=== PATIENT | female | born 1985 | race Caucasian/White ===

== ENCOUNTER 2016-10-03 20:43 | Observation (INO) ==
[2016-10-03 22:49] LABS: Basophils # 0.1 K/mcL (0.0-0.2); Basophils % 0.4 %; Eosinophils # 0.1 K/mcL (0.0-0.6); Eosinophils % 0.7 %; Hematocrit 37.8 % (35.3-44.9); Hemoglobin 12.5 g/dL (11.5-15.4); Immature Granulocytes % 0.2 % (0-4); Lymphocytes # 4.3 K/mcL (0.6-4.6); Lymphocytes % 26.2 %; Mean Corpuscular HGB Conc 33.1 g/dL (31.6-35.5); Mean Corpuscular Hemoglobin 29.1 pg (28.0-33.3); Mean Corpuscular Volume 88.1 fL (83.0-100.0); Mean Platelet Volume 8.1 fL (9.4-12.4); Platelet Count 312 K/mcL (140-400); Red Blood Count 4.29 M/mcL (3.82-4.97); Red Cell Distribution Width 12.5 % (11.5-14.5); Segmented Neutrophils % 66.5 %
[2016-10-03 23:05] LABS: Alanine Aminotransferase 12 Units/L (0-55); Albumin 3.3 g/dL (3.5-5.0); Albumin/Globulin Ratio 0.8 (1.1-2.2); Alkaline Phosphatase 86 Units/L (38-126); Aspartate Amino Transferase 15 Units/L (5-34); BUN/Creatinine Ratio 12 (6-26); Bilirubin,Direct 0.1 mg/dL (0.0-0.5); Bilirubin,Indirect 0.2 mg/dL (0.0-1.2); Bilirubin,Total 0.3 mg/dL (0.2-1.2); Blood Urea Nitrogen 10 mg/dL (7-20); Calcium 9.1 mg/dL (8.6-10.8); Carbon Dioxide 26 mEq/L (19-29); Chloride 105 mEq/L (98-109); Globulin 4.3 g/dL (2.4-3.5); Glucose 89 mg/dL (70-99); Lipase 292 Units/L (8-78); Osmolality,Calculated 283 (280-300); Potassium 3.5 mEq/L (3.5-4.5); Sodium 137 mEq/L (136-145); Total Protein 7.6 g/dL (6.0-8.3); eGFR For African Americans > 60 (> 60); eGFR For Non-African Americans > 60 (> 60)
[2016-10-04] MEDS ORDERED: 0.9 % Sodium Chloride 1,000 ML IVC ONE (01:21)
[2016-10-04] MEDS ORDERED: *HR* Morphine 2 MG/ML SYRINGE IVP ONE ×2 (01:21→04:40)
[2016-10-04] MEDS ORDERED: Ondansetron 4 MG/2 ML VIAL IVP ONE (01:21)
--- NOTE | 2016-10-04 01:25 | Emergency Department Note ---
Disposition Clinical Impression: Abdominal pain Qualifiers: Abdominal location: unspecified location Qualified Code(s): R10.9 - Unspecified abdominal pain Nausea and vomiting Qualifiers: Vomiting type: unspecified Vomiting Intractability: unspecified Qualified Code( s): R11.2 - Nausea with vomiting, unspecified Pancreatitis Qualifiers: Chronicity: acute Pancreatitis type: unspecified pancreatitis type Acute pancreatitis complication: unspecified Qualified Code(s): K85.90 - Acute pancreatitis without necrosis or infection, unspecified Disposition: Admitted As Inpatient Condition: Fair Referrals: Sergio Ervin DO [Primary Care Provider] - Forms: Work/School Release, ED Satisfaction Letter Time of Disposition: 03:52 Abdominal Pain HPI - General Chief Complaint: ED Abdominal Pain Stated Complaint: lower rt side abdominal pain Time Seen by Provider: 10/04/16 01:16 Source: patient Mode of arrival: ambulatory Limitations: no limitations Nursing Notes Reviewed: Yes Vital Signs Reviewed: Yes - History of Present Illness HPI Narrative: 31-year-old female with history of anxiety and depression presents for evaluation of right lower quadrant pain. Patient notes symptoms initially started around 1730 last night. Noticed to be periumbilical at that time. Since then the patient notes primarily sharp pain in her right lower quadrant but states it she does have pain in her left lower abdomen as well. Denies history of appendicitis. Reports nausea and vomiting since the onset of pain. Reports the pain is worse with walking and ambulation. States she has not taken any medicine prior to arrival. Notes that she has been nothing by mouth for approximately 3 hours prior to examination. Denies any fevers. Denies any chest pain or shortness of breath. Denies any dysuria or hematuria. States that she was seen at urgent care earlier today and had a negative urine test obtained at that time. Denies possibly being . No vaginal bleeding or discharge. Pain Scale: 10 - Related Data Home Medications Medication Instructions Recorded Confirmed Buspirone HCl [Buspar] 10 mg PO DAILY 12/19/15 06/16/16 TraZODone [TraZODone] 100 mg PO DAILY 12/19/15 06/16/16 Venlafaxine XR (24 HR) [Effexor Xr] 225 mg PO DAILY 12/19/15 06/16/16 ARIPiprazole [Abilify] 10 mg PO DAILY 06/16/16 06/16/16 Naproxen [Naprosyn] 250 mg PO DAILY 06/16/16 06/16/16 Norgestimate-Ethinyl Estradiol 1 each PO DAILY 06/16/16 06/16/16 [Sprintec 28 Day Tablet] Previous Rx's Medication Instructions Recorded Ibuprofen [Motrin] 800 mg PO Q8HR #30 tablet 12/19/15 Acetaminophen [Tylenol] 650 mg PO Q6HR PRN #20 tablet 02/25/16 amLODIPine [Norvasc] 2.5 mg PO DAILY #14 tablet 02/25/16 Sulfamethoxazole/Trimeth DS 1 each PO BID #20 tablet 06/16/16 [Bactrim DS] Allergies Allergy/AdvReac Type Severity Reaction Status Date / Time flu vaccine Allergy can't take Uncoded 10/03/16 21:23 All systems ED: reviewed and negative except as stated. Constitutional: Reports: as per HPI. Denies: fever Eyes: Reports: as per HPI ENT ED: Reports: as per HPI Cardiovascular: Reports: as per HPI. Denies: chest pain Respiratory: Reports: as per HPI. Denies: dyspnea Gastrointestinal: Reports: as per HPI, abdominal pain, nausea, vomiting. Denies : diarrhea, constipation Genitourinary: Reports: as per HPI. Denies: urgency, dysuria Musculoskeletal: Reports: as per HPI Integumentary: Reports: as per HPI Neurological: Reports: as per HPI Psychiatric: Reports: as per HPI Endocrine: Reports: as per HPI Hematological/Lymphatic: Reports: as per HPI Allergic/Immunologic: Reports: as per HPI Abdominal Pain PMH - Past Medical History Medical history: Reports: hypertension Female Surgical History: Reports: orthopedic, other [employer] history: Reports: non-contributory Psychiatric history: Reports: anxiety, depression, other - Social History Smoking status: Never smoker Alcohol use: Reports: none Drug use: Reports: none Physical Exam - General Limitations: no limitations General appearance: alert - Head Head exam: atraumatic, normocephalic, normal inspection - Eye Eye exam: Present: normal appearance, EOMI - ENT ENT exam: normal exam, mucous membranes moist - Neck Neck exam: Present: normal inspection, trachea midline - Chest Chest inspection: Present: normal inspection, symmetric chest wall rise - Respiratory Respiratory exam: Present: normal lung sounds bilaterally. Absent: respiratory distress - Cardiovascular Cardiovascular exam: Present: regular rate, normal rhythm - Abdominal Exam Abdominal exam: Present: soft, tenderness (Moderate tenderness with deep palpation in the right lower quadrant.), guarding (Involuntary), normal bowel sounds - Extremities Exam Extremities exam: Present: normal inspection. Absent: pedal edema - Back Exam Back exam: Present: normal inspection. Absent: CVA tenderness (R), CVA tenderness (L) - Neurological Exam Neurological exam: Present: alert, oriented X3, CN II-XII intact - Psychiatric Psychiatric exam: Present: normal affect, normal mood - Skin Skin exam: Present: warm, dry, intact, normal color Course Course Narrative: Patient seen and examined upon arrival to the treatment area. Patient does have a concerning history for an appendicitis. Patient had lab work obtained from triage. Does have leukocytosis. Reports that she had a negative urine test earlier at urgent care. Patient will get a CT pelvis with contrast. Symptomatically with IV fluids and antiemetics and pain control. Disposition pending. - Reevaluation(s) Reevaluation #1: Patient seen and examined. Patient's abdominal exam is unremarkable. Patient' s CT shows diverticulosis without evidence of appendicitis. Awaiting urinalysis. Time: 02:48 Reevaluation #2: Patient seen and examined. States that her pain has not completely resolved. Discuss plan of care. Time: 03:46 Reevaluation #3: Patient seen and reexamined. Patient states that her pain has not improved. Patient was offered admission to the hospital. Time: 04:26 Additional Reevaluation(s): 0438: Bedside ultrasound was done of the visualized gallbladder. Patient is tearful on exam. Patient is tearful on exam, and not comfortable going home and the likelihood of returning is high. 0457: Spoke with hospitalist regarding plan of care. Hospitalists recommended we place the order for the gallbladder ultrasound. Vital Signs Temperature 98.2 F 10/03/16 21:17 Pulse Rate 89 10/03/16 21:17 Respiratory Rate 16 10/03/16 21:17 Blood Pressure 157/102 10/03/16 21:17 O2 Sat by Pulse Oximetry 97 10/03/16 21:17 Temperature 98.2 F 10/03/16 21:17 Pulse Rate 78 10/04/16 03:00 Respiratory Rate 15 10/04/16 03:00 Blood Pressure 154/99 10/04/16 03:00 O2 Sat by Pulse Oximetry 97 10/03/16 21:17 Oxygen Delivery Oxygen Delivery Room Air Abdominal Pain - MDM Narrative Medical decision making narrative: 31-year-old female pins for evaluation of abdominal pain. Patient extensive workup including labs, lipase, CT abdomen and pelvis. CT shows diverticulosis without evidence of diverticulitis. Patient had a mild elevation in her lipase. Patient also had a mild leukocytosis likely related to vomiting. Patient's CT scan did not show any evidence of acute pancreatitis. Patient did not appear to be any acute distress. Patient likely to be managed as an outpatient. Patient will be treated for pancreatitis as an outpatient. States she does not drink alcohol. Recommended a clear liquid diet today. Follow-up with her primary doctor the next 2-3 days. Zofran for nausea as well as Levsin for pain. Patient will likely need outpatient ultrasound of the gallbladder. Patient is agreeable to this plan of care. Return precautions were discussed and verbalized. Symptoms are worse with fevers or nausea vomiting she should return to emergency department for further evaluation. On reevaluation. The patient is extremely tearful on exam. The patient does not feel comfortable going home. Patient does have a mildly elevated lipase with no changes acute changes on CT abd pelvis. Attempted to trial outpatient management of her pancreatitis however the patient states that she "has never felt this pain before" and doesn't feel comfortable going home. Bedside ultrasound in the emergency department was unable to visualize the gallbladder. Patient be admitted to the hospitalist service for further evaluation monitoring. Appropriate pain control and likely ultrasound of GB. - Lab Data Lab results reviewed: Yes I reviewed the patient's lab results. Result diagrams: 10/03/16 22:32 10/03/16 22:32 Lab Results 10/03/16 10/03/16 10/04/16 Range/Units 22:32 22:32 02:33 WBC 16.6 H (4.3-11.1) K/mcL RBC 4.29 (3.82-4.97) M/mcL Hgb 12.5 (11.5-15.4) g/dL Hct 37.8 (35.3-44.9) % MCV 88.1 (83.0-100.0) fL MCH 29.1 (28.0-33.3) pg MCHC 33.1 (31.6-35.5) g/dL RDW 12.5 (11.5-14.5) % Plt Count 312 (140-400) K/mcL MPV 8.1 L (9.4-12.4) fL Immature Gran % 0.2 (0-4) % Seg Neutrophils % 66.5 % Lymphocytes % 26.2 % Monocytes % 6.0 % Eosinophils % 0.7 % Basophils % 0.4 % Neutrophils # 11.0 H (1.6-8.9) K/mcL Lymphocytes # 4.3 (0.6-4.6) K/mcL Monocytes # 1.0 (0.0-1.3) K/mcL Eosinophils # 0.1 (0.0-0.6) K/mcL Basophils # 0.1 (0.0-0.2) K/mcL Sodium 137 (136-145) mEq/L Potassium 3.5 (3.5-4.5) mEq/L Chloride 105 (98-109) mEq/L Carbon Dioxide 26 (19-29) mEq/L BUN 10 (7-20) mg/dL Creatinine 0.86 (0.57-1.11) mg/dL Est GFR ( Amer) > 60 (> 60) Est GFR (Non-Af Amer) > 60 (> 60) BUN/Creatinine Ratio 12 (6-26) Glucose 89 (70-99) mg/dL Calculated Osmolality 283 (280-300) Calcium 9.1 (8.6-10.8) mg/dL Total Bilirubin 0.3 (0.2-1.2) mg/dL Direct Bilirubin 0.1 (0.0-0.5) mg/dL Indirect Bilirubin 0.2 (0.0-1.2) mg/dL AST 15 (5-34) Units/L ALT 12 (0-55) Units/L Alkaline Phosphatase 86 (38-126) Units/L Serum Total Protein 7.6 (6.0-8.3) g/dL Albumin 3.3 L (3.5-5.0) g/dL Globulin 4.3 H (2.4-3.5) g/dL Albumin/Globulin Ratio 0.8 L (1.1-2.2) Lipase 292 H (8-78) Units/L Urine Color (Yellow) Urine Clarity (Clear) Urine pH (5.0-8.0) pH Units Ur Specific Crosby (1.010-1.025) Urine Protein (Neg-Trace) mg/dL Urine Glucose (UA) (Normal) mg/dL Urine Ketones (Negative) mg/dL Urine Blood (Negative) Urine Nitrite (Negative) Urine Bilirubin (Negative) Urine Urobilinogen (Normal) mg/dL Ur Leukocyte Esterase (Negative) Urine Microscopic RBC (0-3) per hpf Urine Microscopic WBC (0-3) per hpf Ur Squamous Epith Cells (None-Few) per lpf Urine Bacteria (None-Few) per hpf Hyaline Casts (None-Few) per lpf Ur Culture Indicated? (NO) Urine Test Negative (Negative) 10/04/16 Range/Units 02:33 WBC (4.3-11.1) K/mcL RBC (3.82-4.97) M/mcL Hgb (11.5-15.4) g/dL Hct (35.3-44.9) % MCV (83.0-100.0) fL MCH (28.0-33.3) pg MCHC (31.6-35.5) g/dL RDW (11.5-14.5) % Plt Count (140-400) K/mcL MPV (9.4-12.4) fL Immature Gran % (0-4) % Seg Neutrophils % % Lymphocytes % % Monocytes % % Eosinophils % % Basophils % % Neutrophils # (1.6-8.9) K/mcL Lymphocytes # (0.6-4.6) K/mcL Monocytes # (0.0-1.3) K/mcL Eosinophils # (0.0-0.6) K/mcL Basophils # (0.0-0.2) K/mcL Sodium (136-145) mEq/L Potassium (3.5-4.5) mEq/L Chloride (98-109) mEq/L Carbon Dioxide (19-29) mEq/L BUN (7-20) mg/dL Creatinine (0.57-1.11) mg/dL Est GFR ( Amer) (> 60) Est GFR (Non-Af Amer) (> 60) BUN/Creatinine Ratio (6-26) Glucose (70-99) mg/dL Calculated Osmolality (280-300) Calcium (8.6-10.8) mg/dL Total Bilirubin (0.2-1.2) mg/dL Direct Bilirubin (0.0-0.5) mg/dL Indirect Bilirubin (0.0-1.2) mg/dL AST (5-34) Units/L ALT (0-55) Units/L Alkaline Phosphatase (38-126) Units/L Serum Total Protein (6.0-8.3) g/dL Albumin (3.5-5.0) g/dL Globulin (2.4-3.5) g/dL Albumin/Globulin Ratio (1.1-2.2) Lipase (8-78) Units/L Urine Color Yellow (Yellow) Urine Clarity Clear (Clear) Urine pH 6.0 (5.0-8.0) pH Units Ur Specific Crosby 1.018 (1.010-1.025) Urine Protein Negative (Neg-Trace) mg/dL Urine Glucose (UA) Normal (Normal) mg/dL Urine Ketones Negative (Negative) mg/dL Urine Blood Small H (Negative) Urine Nitrite Negative (Negative) Urine Bilirubin Negative (Negative) Urine Urobilinogen Normal (Normal) mg/dL Ur Leukocyte Esterase Negative (Negative) Urine Microscopic RBC 3-5 H (0-3) per hpf Urine Microscopic WBC 0-3 (0-3) per hpf Ur Squamous Epith Cells Few (None-Few) per lpf Urine Bacteria None Seen (None-Few) per hpf Hyaline Casts None Seen (None-Few) per lpf Ur Culture Indicated? NO (NO) Urine Test (Negative) - Radiology Data Radiology results reviewed: Yes I reviewed the patient's radiology results. Abdomen/Pelvis CT 10/04/16 01:22 IMPRESSION: Diverticulosis. D/ / Adriano Saravia MD / Adrinao Saravia MD Interpreting Provider: Adriano Saravia MD [facility] - [facility].B.A.[facility]. Situation: Demographics Background: Presenting Complaint Assessment: Vital Signs, Course and respsone to treatment, Exam Concerns, Patient/Family Expectation, Pertinant Lab Results Recommendation: Barrier(s) to disposition, Recommendation based on pending studies, treatments, or consults S.B.A.R. Report Given to: Dr. Beltran Antonio Repor Time: 04:53 Attestation Statement - Attestation Attestation: I, Girish Devries MD, personally evaluated this patient and discussed their management with the resident physician. I reviewed the resident's note and agree with the documented findings, medical decision making, and plan of care. 31-year-old female presents to the emergency department with a complaint of some abdominal pain which started about 5:30 this evening. Pain was initially in the periumbilical area and then moved to the entire lower abdomen. Now seems to be worse in the right lower quadrant. There has been some nausea and vomiting associated with the pain. No fever. No diarrhea. No urinary symptoms. On examination patient is a well-developed obese female in no acute distress. She is alert and oriented 3. There is no cyanosis or diaphoresis. Breath sounds are clear and equal bilaterally. Heart regular rate and rhythm. Abdomen is soft with normal bowel sounds. There is mild diffuse lower abdominal tenderness which is slightly worse in the right lower quadrant. No guarding or rebound tenderness. No CVA tenderness. Labs reviewed. CT of the abdomen and pelvis showed some diverticulosis with no acute abnormality. Patient continued to complain of pain and nausea and did not feel comfortable going home. The hospitalist, Dr. Gong, was consulted and accepted admission of the patient.
[2016-10-04 03:05] LABS: Bilirubin,Urine Negative (Negative); Blood,Urine Small (Negative); Clarity,Urine Clear (Clear); Color,Urine Yellow (Yellow); Glucose,Urine (UA) Normal (Normal); Ketones,Urine Negative (Negative); Leukocyte Esterase,Urine Negative (Negative); Nitrite,Urine Negative (Negative); Protein,Urine Negative (Neg-Trace); Specific Gravity,Urine 1.018 (1.010-1.025); Urobilinogen,Urine Normal (Normal)
[2016-10-04 03:08] LABS: Bacteria,Urine None Seen per hpf (None-Few); Hyaline Casts,Urine None Seen per lpf (None-Few); Squamous Epithelial Cell,Urine Few per lpf (None-Few); WBC,Urine 0-3 per hpf (0-3)
[2016-10-04] MEDS ORDERED: Ketorolac 15 MG/ML VIAL IVP ONE (04:10)
[2016-10-04] MEDS ORDERED: Naloxone 0.4 MG/ML INJ IVP PRN (09:07)
[2016-10-04] MEDS ORDERED: Acetaminophen 325 MG TABLET PO PRN (09:07)
--- NOTE | 2016-10-04 09:19 | Internal Med History&Physical ---
Date of Encounter: 10/04/16 Time of Encounter: 08:00 Assessment and Plan (1) DVT prophylaxis Current visit: Yes Status: Acute Lovenox subcutaneously (2) Abdominal pain Current visit: Yes Status: Acute Patient has abdominal pain, with nausea and vomiting. Elevated WBC. Elevated lipase. Patient has a mild tachycardia. - CT abdomen shows normal appendix and pancreas - Abd ultrasound shows no gallstones. - Elevated lipase suggestive of acute pancreatitis. However, patient has lower abdominal pain with the right side more than left side, early appendicitis or gastroenteritis cannot completely excluded. - Patient has elevated WBC and a tachycardia, meet criteria of SIRS, will empirically place patient on Cipro and Flagyl. - Continue nothing by mouth, IV fluid, and pain medication. Closely monitor patient. - Follow up lipase level in a.m. Qualifiers: Abdominal location: right lower quadrant Qualified Code(s): R10.31 - Right lower quadrant pain Internal Medicine - H&P: HPI Chief complaint: Abdominal pain Admitted From: Home Plans for Post Hospital Care: Home History of present illness: Ms. Jason is a 31 year old female patient is a 31-year-old female admitted for abdominal pain. Patient said that the pain started at about the 2 PM yesterday , resolved by itself but to restart at 5:30 PM. Pain is constant, sharp, pressure-like, 10 out of 10. Pain is located on lower abdominal, bilaterally, but right side more than left side. Patient denies fever, but did feel cold. Patient has nausea and vomited twice, the vomiting is greenish fluid, no blood. Patient denies diarrhea or urinary symptoms. Patient has no problem with bowel movement or passing gas. Past Med Surg Social Fam HX - Past Medical History Medical history: hypertension Psychiatric history: anxiety, depression, other - Past Surgical History Surgical History: non-contributory - Social History Smoking Status: Never smoker Smokeless Tobacco Status: No Alcohol use: none Drug use: none - Family History Mother Living Status: Age at : 52 Cause of : Bowel obstruction Father Living Status: Unknown Internal Medicine - H&P: Meds Acetaminophen [Tylenol] 650 mg PO Q6HR PRN #20 tablet 02/25/16 [Rx] amLODIPine [Norvasc] 2.5 mg PO DAILY #14 tablet 02/25/16 [Rx] ARIPiprazole [Abilify] 30 mg PO DAILY 06/16/16 [History] Naproxen [Naprosyn] 250 mg PO DAILY PRN 06/16/16 [History] Norgestimate-Ethinyl Estradiol [Sprintec 28 Day Tablet] 1 each PO DAILY [History] Buspirone HCl [Buspar] 15 mg PO BID 10/04/16 [History] DULoxetine [Cymbalta] 90 mg PO DAILY 10/04/16 [History] Doxepin HCl 100 mg PO HS 10/04/16 [History] LORazepam [Ativan] 0.5 mg PO BID PRN 10/04/16 [History] Allergies flu vaccine Allergy (Uncoded 10/03/16 21:23) can't take All Systems PM: A 10-system review of systems was performed and is negative for pertinent findings except as documented above in the HPI. - Constitutional Vitals: Temp Pulse Resp BP Pulse Ox 97.7 F 92 13 107/68 96 10/04/16 07:14 10/04/16 07:14 10/04/16 07:14 10/04/16 07:14 10/04/16 07:40 General appearance: Present: A&O X 3, no acute distress, answers questions appropriately - Head Head exam: Present: atraumatic, normocephalic - Eye Eye exam: Present: PERRL, conjuntiva pink, sclera anicteric Pupils: Present: PERRL - Neck Neck exam general surgery: Present: supple, trachea midline. Absent: lymphadenopathy - Respiratory Respiratory exam: Present: CTAB. Absent: accessory muscle use, rales, rhonchi, wheezes - Cardiovascular Cardiovascular exam: Present: RRR, +S1, +S2. Absent: diastolic murmur, gallop, rubs, systolic murmur - GI/Abdominal GI/Abdominal exam: Present: normal bowel sounds, rebound, soft, tenderness ( Tenderness in 4Q, mainly RLQ and RUQ, rebound in RLQ and RUQ, no guarding.), no peritoneal signs. Absent: distended - Extremities Exam Extremities exam: Present: warm, radial pulses palpable and symetrical. Absent : calf tenderness, cyanotic, pedal edema - Neurological Exam Neurological exam: Present: CN II-XII intact, oriented X3, no focal deficits. Absent: pronater drift, facial droop, speech deficit - Skin Skin exam: Present: dry, intact Internal Med - H&P Results - Labs CBC & Chem 7: 10/03/16 22:32 10/03/16 22:32 - Impressions ITS Impressions Gallbladder Ultrasound 10/04/16 08:00 IMPRESSION: Suboptimal evaluation of the pancreas, otherwise unremarkable right upper quadrant ultrasound. D/ / Chery Mejia MD / Chery Mejia MD Interpreting Provider: Chery Mejia MD
[2016-10-04] MEDS: MetroNIDAZOLE 500 MG/100 ML 500 MG/100 ML BAG IVPB SCH ×2 (11:00→17:51)
[2016-10-04] MEDS: *HR* Morphine 2 MG/ML SYRINGE IVP PRN ×3 (11:00→20:33)
[2016-10-04] MEDS: 0.9 % Sodium Chloride 1,000 ML IVC SCH ×2 (11:01→20:33)
[2016-10-04] MEDS ORDERED: *HR* LORazepam 2 MG/ML VIAL IVP PRN (11:01)
[2016-10-04] MEDS: Ondansetron 4 MG/2 ML VIAL IVP PRN (15:23)
[2016-10-05] MEDS: *HR* Morphine 2 MG/ML SYRINGE IVP PRN ×2 (04:53→09:07)
[2016-10-05] MEDS: *HR* Enoxaparin 40 MG/0.4 ML SYRINGE SQ SCH (04:54)
[2016-10-05] MEDS: 0.9 % Sodium Chloride 1,000 ML IVC SCH ×2 (04:54→07:05)
[2016-10-05] MEDS: MetroNIDAZOLE 500 MG/100 ML 500 MG/100 ML BAG IVPB SCH (04:54)
[2016-10-05 05:29] LABS: Basophils % 0.5 %; Eosinophils # 0.2 K/mcL (0.0-0.6); Eosinophils % 2.5 %; Hematocrit 39.3 % (35.3-44.9); Hemoglobin 12.4 g/dL (11.5-15.4); Immature Granulocytes % 0.6 % (0-4); Lymphocytes % 34.4 %; Mean Corpuscular HGB Conc 31.6 g/dL (31.6-35.5); Mean Corpuscular Hemoglobin 28.2 pg (28.0-33.3); Mean Corpuscular Volume 89.3 fL (83.0-100.0); Monocytes # 0.6 K/mcL (0.0-1.3); Monocytes % 6.3 %; Neutrophils # 4.9 K/mcL (1.6-8.9); Platelet Count 294 K/mcL (140-400); Red Cell Distribution Width 12.4 % (11.5-14.5); Segmented Neutrophils % 55.7 %
[2016-10-05 05:30] LABS: BUN/Creatinine Ratio 9 (6-26); Blood Urea Nitrogen 7 mg/dL (7-20); Calcium 8.3 mg/dL (8.6-10.8); Carbon Dioxide 24 mEq/L (19-29); Chloride 108 mEq/L (98-109); Glucose 72 mg/dL (70-99); Lipase 30 Units/L (8-78); Magnesium 1.7 mg/dL (1.6-2.6); Osmolality,Calculated 281 (280-300); Sodium 137 mEq/L (136-145); eGFR For African Americans > 60 (> 60); eGFR For Non-African Americans > 60 (> 60)
[2016-10-05 08:07] LABS: Cholesterol 182 mg/dL (< 200); HDL Cholesterol 61 mg/dL (40-59); LDL Cholesterol,Calculated 96 mg/dL (0-99); Triglycerides 127 mg/dL (< 150)
[2016-10-05] MEDS: Pantoprazole 40 MG VIAL IVP SCH (09:07)
[2016-10-05] MEDS: Ketorolac 30 MG/ML VIAL IVP PRN ×2 (14:55→21:40)
[2016-10-05] MEDS: *HR* LORazepam 0.5 MG TABLET PO PRN (14:56)
--- NOTE | 2016-10-05 15:12 | Internal Med Progress Note ---
Date of Encounter: 10/05/16 Time of Encounter: 09:00 - Assessment and plan (1) Pancreatitis Current Visit: Yes Status: Acute Assessment and plan: Lipase normal today. Ultrasound of the abdomen does not show any gallstones. Leukocytosis has resolved. Lipid profile shows normal triglycerides. Most likely idiopathic pancreatitis. Continue supportive care. Pain control. IV hydration. Advance diet as tolerated. Qualifiers: Chronicity: acute Pancreatitis type: idiopathic Acute pancreatitis complication: no infection or necrosis Qualified Code(s): K85.00 - Idiopathic acute pancreatitis without necrosis or infection (2) Abdominal pain Current Visit: Yes Status: Acute Assessment and plan: Patient continues to have pain but did abdominal pain. This is slightly improved compared to yesterday but still significant and patient is requiring intravenous narcotic medications. No nausea or vomiting. We will Start patient on clears for now. Qualifiers: Abdominal location: right lower quadrant Qualified Code(s): R10.31 - Right lower quadrant pain (3) Nausea and vomiting Current Visit: Yes Status: Resolved Assessment and plan: Nausea has improved. Continue supportive care and advance diet as tolerated Qualifiers: Vomiting type: unspecified Vomiting Intractability: non-intractable Qualified Code(s): R11.2 - Nausea with vomiting, unspecified (4) DVT prophylaxis Current Visit: Yes Status: Acute Assessment and plan: On subcutaneous Lovenox - Subjective Interval history: Patient continues to have abdominal pain although but slightly improved compared to yesterday. No nausea or vomiting. No fever or chills reported. No hematemesis. - Constitutional Vitals: Temp Pulse Resp BP Pulse Ox 98.0 F 105 16 128/73 97 10/05/16 14:37 10/05/16 14:37 10/05/16 14:37 10/05/16 14:37 10/05/16 14:37 General appearance: Present: A&O X 3, no acute distress, obese, answers questions appropriately - Respiratory Respiratory exam: Present: CTAB. Absent: accessory muscle use, rales, rhonchi, wheezes - Cardiovascular Cardiovascular exam: Present: RRR, +S1, +S2. Absent: diastolic murmur, gallop, rubs, systolic murmur - GI/Abdominal GI/Abdominal exam: Present: normal bowel sounds, soft, tenderness ( Midepigastric region), no peritoneal signs. Absent: distended - Extremities Exam Extremities exam: Present: warm, radial pulses palpable and symetrical. Absent : calf tenderness, cyanotic, pedal edema - Neurological Exam Neurological exam: Present: alert, oriented X3, no focal deficits. Absent: facial droop, speech deficit Internal Medicine: Result - Labs CBC & Chem 7: 10/05/16 05:04 10/05/16 05:04 Labs: Short CBC 10/05/16 Range/Units 05:04 WBC 8.7 (4.3-11.1) K/mcL Hgb 12.4 (11.5-15.4) g/dL Hct 39.3 (35.3-44.9) % Plt Count 294 (140-400) K/mcL Neutrophils # 4.9 (1.6-8.9) K/mcL BMP 10/05/16 05:04 Sodium 137 Potassium 4.0 Chloride 108 Carbon Dioxide 24 BUN 7 Creatinine 0.78 Glucose 72 Calcium 8.3 L Consult Discharge Plan - Plan Referrals: Sergio Ervin DO [Primary Care Provider] - 10/16/16 9:30 am
[2016-10-06] MEDS: Ketorolac 30 MG/ML VIAL IVP PRN ×3 (06:49→20:58)
[2016-10-06] MEDS: *HR* Enoxaparin 40 MG/0.4 ML SYRINGE SQ SCH (06:49)
[2016-10-06] MEDS: Pantoprazole 40 MG VIAL IVP SCH (07:46)
[2016-10-06] MEDS: amLODIPine 5 MG TABLET PO SCH (07:46)
[2016-10-06] MEDS: Ondansetron 4 MG/2 ML VIAL IVP PRN ×2 (13:25→21:37)
--- NOTE | 2016-10-06 14:25 | Discharge Summary ---
Date of Encounter: 10/06/16 Time of Encounter: 14:22 - Discharge Diagnosis (1) Abdominal pain Priority: Secondary Status: Acute Qualifiers: Abdominal location: right lower quadrant Qualified Code(s): R10.31 - Right lower quadrant pain (2) Nausea and vomiting Priority: Secondary Status: Resolved Qualifiers: Vomiting type: unspecified Vomiting Intractability: non-intractable Qualified Code(s): R11.2 - Nausea with vomiting, unspecified (3) Pancreatitis Priority: Primary Status: Acute Qualifiers: Chronicity: acute Pancreatitis type: idiopathic Acute pancreatitis complication: no infection or necrosis Qualified Code(s): K85.00 - Idiopathic acute pancreatitis without necrosis or infection (4) DVT prophylaxis Priority: Secondary Status: Acute - Discharge Medications Prescriptions: Omeprazole Magnesium [Prilosec Otc] 20 mg PO DAILY #30 tablet. Home Medications: Acetaminophen [Tylenol] 650 mg PO Q6HR PRN #20 tablet 02/25/16 [Rx] amLODIPine [Norvasc] 2.5 mg PO DAILY #14 tablet 02/25/16 [Rx] ARIPiprazole [Abilify] 30 mg PO DAILY 06/16/16 [History] Naproxen [Naprosyn] 250 mg PO DAILY PRN 06/16/16 [History] Norgestimate-Ethinyl Estradiol [Sprintec 28 Day Tablet] 1 each PO DAILY [History] Buspirone HCl [Buspar] 15 mg PO BID 10/04/16 [History] DULoxetine [Cymbalta] 90 mg PO DAILY 10/04/16 [History] Doxepin HCl 100 mg PO HS 10/04/16 [History] LORazepam [Ativan] 0.5 mg PO BID PRN 10/04/16 [History] Acetaminophen [Tylenol] 650 mg PO Q6HR PRN tab 10/06/16 [Rx] Omeprazole Magnesium [Prilosec Otc] 20 mg PO DAILY #30 tablet. 10/06/16 [Rx] Allergies/Adverse Reactions: Allergies flu vaccine Allergy (Uncoded 10/03/16 21:23) can't take Date of admission: 10/04/16 05:08 Primary care physician: Sergio Ervin, Discharging clinician: Nancy Morrissey Anticipated date of discharge: 10/06/16 - Patient Status Disposition: Home, Self-Care Condition: Fair Overall status at discharge: patient is progressing back to baseline - Discharge Instructions Follow Up With: Sergio Ervin DO [Primary Care Provider] - 10/16/16 9:30 am - Diet and Activity Activity: resume usual activities as tolerated Diet: advance to your usual diet Hospital course: Ms. Jason is a 31 year old female admitted for abdominal pain nausea and vomiting. She was diagnosed with acute pancreatitis. She was treated conservatively and now she can tolerate diet. Her symptoms have resolved spontaneously. She had CT abdomen and ultrasound of gallbladder which were unremarkable. Lipid profile was negative and patient claims that she is not an alcoholic knees on any illicit drug. She is advised to have her family doctor review medication. - Time Spent with Patient Total time spent providing and/or coordinating discharge services: Greater than 30 minutes - Constitutional Vitals: Temp Pulse Resp BP Pulse Ox 98.3 F 82 16 114/66 96 10/06/16 10:32 10/06/16 10:32 10/06/16 10:32 10/06/16 10:32 10/06/16 10:32 General appearance: Present: A&O X 3, no acute distress, obese, answers questions appropriately - Head Head exam: Present: atraumatic, normocephalic - Eye Eye exam: Present: PERRL, conjuntiva pink, sclera anicteric Pupils: Present: PERRL - Neck Neck exam general surgery: Present: supple, trachea midline. Absent: lymphadenopathy - Respiratory Respiratory exam: Present: CTAB. Absent: accessory muscle use, rales, rhonchi, wheezes - Cardiovascular Cardiovascular exam: Present: RRR, +S1, +S2. Absent: diastolic murmur, gallop, rubs, systolic murmur - GI/Abdominal GI/Abdominal exam: Present: normal bowel sounds, soft, no peritoneal signs. Absent: distended, tenderness - Extremities Exam Extremities exam: Present: warm, radial pulses palpable and symetrical. Absent : calf tenderness, cyanotic, pedal edema - Neurological Exam Neurological exam: Present: CN II-XII intact, oriented X3, no focal deficits. Absent: pronater drift, facial droop, speech deficit - Skin Skin exam: Present: dry, intact
[2016-10-06] MEDS: *HR* LORazepam 0.5 MG TABLET PO PRN (15:43)
[2016-10-06] MEDS: ARIPiprazole 10 MG TABLET PO SCH (17:10)
[2016-10-06] MEDS: *HR* Morphine 2 MG/ML SYRINGE IVP PRN (17:11)
[2016-10-07] MEDS: *HR* Enoxaparin 40 MG/0.4 ML SYRINGE SQ SCH (05:24)
[2016-10-07] MEDS: ARIPiprazole 10 MG TABLET PO SCH (07:28)
[2016-10-07] MEDS: amLODIPine 5 MG TABLET PO SCH (07:28)
[2016-10-07] MEDS: Pantoprazole 40 MG VIAL IVP SCH (07:29)
[2016-10-07 10:43] VITALS: BP 109/67
--- NOTE | 2016-10-07 11:13 | Internal Med Progress Note ---
Date of Encounter: 10/07/16 Time of Encounter: 11:11 - Assessment and plan (1) Abdominal pain Current Visit: Yes Status: Acute Assessment and plan: Condition due to pancreatitis and has resolved Qualifiers: Abdominal location: right lower quadrant Qualified Code(s): R10.31 - Right lower quadrant pain (2) Nausea and vomiting Current Visit: Yes Status: Resolved Assessment and plan: Secondary to pancreatitis and has resolved Qualifiers: Vomiting type: unspecified Vomiting Intractability: non-intractable Qualified Code(s): R11.2 - Nausea with vomiting, unspecified (3) Pancreatitis Current Visit: Yes Status: Acute Assessment and plan: Lipase normal . Ultrasound of the abdomen does not show any gallstones. Leukocytosis has resolved. Lipid profile shows normal triglycerides. Most likely idiopathic pancreatitis. Tolerating diet and seems like pancreatitis has resolved itself. Qualifiers: Chronicity: acute Pancreatitis type: idiopathic Acute pancreatitis complication: no infection or necrosis Qualified Code(s): K85.00 - Idiopathic acute pancreatitis without necrosis or infection (4) DVT prophylaxis Current Visit: Yes Status: Acute - Subjective Interval history: Patient was planned to be discharged yesterday but before discharge developed some nausea therefore discharge was withheld. She has been tolerating full diet well and seems to be asymptomatic therefore she can be discharged. No change in discharge instruction plan. - Constitutional Vitals: Temp Pulse Resp BP Pulse Ox 98.3 F 92 16 109/67 96 10/07/16 10:38 10/07/16 10:38 10/07/16 10:38 10/07/16 10:38 10/07/16 10:38 General appearance: Present: A&O X 3, no acute distress, obese, answers questions appropriately - Head Head exam: Present: atraumatic, normocephalic - Eye Eye exam: Present: PERRL, conjuntiva pink, sclera anicteric Pupils: Present: PERRL - Neck Neck exam general surgery: Present: supple, trachea midline. Absent: lymphadenopathy - Respiratory Respiratory exam: Present: CTAB. Absent: accessory muscle use, rales, rhonchi, wheezes - Cardiovascular Cardiovascular exam: Present: RRR, +S1, +S2. Absent: diastolic murmur, gallop, rubs, systolic murmur - GI/Abdominal GI/Abdominal exam: Present: normal bowel sounds, soft, no peritoneal signs. Absent: distended, tenderness - Extremities Exam Extremities exam: Present: warm, radial pulses palpable and symetrical. Absent : calf tenderness, cyanotic, pedal edema - Neurological Exam Neurological exam: Present: CN II-XII intact, oriented X3, no focal deficits. Absent: pronater drift, facial droop, speech deficit - Skin Skin exam: Present: dry, intact Internal Medicine: Result - Labs CBC & Chem 7: 10/05/16 05:04 10/05/16 05:04 Consult Discharge Plan - Plan Referrals: Sergio Ervin DO [Primary Care Provider] - 10/16/16 9:30 am Prescriptions: Omeprazole Magnesium [Prilosec Otc] 20 mg PO DAILY #30 tablet.
== END 2016-10-07 11:55 | disposition home or self-care (01) ==
LOC: EMEROO 20:43 → 3ANU 20:43
PROVIDERS: ADMIT Internal Medicine; ATTEND Internal Medicine